=== PATIENT | male | born 1960 | race Caucasian/White ===

== ENCOUNTER 2017-07-17 11:52 | Emergency (ER) | payer SELFPAY ==
[2017-07-17] MEDS ORDERED: Tetan/Diph/Pertus SYR(Tdap)* 0.5 ML SYR(BOOSTRIX) use SYR IM ONE (15:12)
[2017-07-17 15:27] VITALS: BP 122/86
--- NOTE | 2017-07-17 16:45 | ED ---
Laceration/Wound HPI - HPI Summary HPI Summary: Patient presents to the ED with a laceration between the thumb and first finger involving the thenar eminence of the left hand which he sustained 6 days ago. He states the area is not healing well and he is noticing some bruising and redness around the laceration. The laceration is approximately 7 cm in length and almost 0.3 cm in depth and 0.5 cm in width. 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 He has been using duct tape for almost a week and states it has been working well. He denies any fever, sweats, chills or other signs indicating systemic infection. Denies any range of motion issues. Denies numbness, tingling, temperature changes. He denies blood thinners and has been otherwise healthy. - History of Current Complaint Stated Complaint: LT HAND LAC Time Seen by Provider: 07/17/17 12:25 Hx Obtained From: Patient Mechanism of Injury: Sharp/Blunt Trauma Onset/Duration: Sudden Onset Aggravating: Movement Alleviating: Compression Timing: Constant Onset Severity: Moderate Current Severity: Moderate Pain Intensity: 0 Pain Scale Used: 0-10 Numeric Related Hx: Dominant Hand (Left) - Allergy/Home Medications Allergies/Adverse Reactions: Allergies Allergy/AdvReac Type Severity Reaction Status Date / Time No Known Allergies Allergy Verified 07/17/17 12:43 PMH/Surg Hx/FS Hx/Imm Hx Previously Healthy: Yes Endocrine/Hematology History: Denies: Hx Diabetes, Hx Thyroid Disease, Hx Anemia Cardiovascular History: Denies: Hx Congestive Heart Failure, Hx Hypertension, Hx Pacemaker/ICD GI History: Reports: Other GI Disorders - bloody emesis, broken vessels since March, History: Reports: Other Problems/Disorders - frequent urination Denies: Hx Dialysis, Hx Renal Disease Musculoskeletal History: Reports: Hx Arthritis, Hx Back Problems, Other Musculoskeletal History - fx ribs, ankles Sensory History: Reports: Hx Contacts or Glasses Denies: Hx Hearing Aid Opthamlomology History: Reports: Hx Contacts or Glasses Neurological History: Reports: Hx Headaches - recent weeks Denies: Hx Migraine, Hx Seizures Psychiatric History: Reports: Hx Substance Abuse - EtOH, marijuana, cocaine Denies: Hx Anxiety, Hx Panic Disorder, Hx Suicide Attempt, Hx of Violent Episodes Against Others - Cancer History Cancer Type, Location and Year: skin cancer 2 lesions-1 on chest and one on face removed Hx Chemotherapy: No Hx Radiation Therapy: No Hx Palliative Cancer Treatment: No - Surgical History Surgery Procedure, Year, and Place: AGE 5 DOUBLE EAR LOBE REPAIRED - Immunization History Date of Tetanus Vaccine: <10 yrs Hx Pertussis Vaccination: No Immunizations Up to Date: Unable to Obtain/Confirm Infectious Disease History: No Infectious Disease History: Denies: Traveled Outside the [place] in Last 30 Days - Social History Occupation: Employed Full-time Lives: With Family Alcohol Use: Daily Alcohol Amount: 24 beers daily Hx Substance Use: No Substance Use Type: Reports: None Hx Tobacco Use: Yes Smoking Status (MU): Former Smoker Type: Cigarettes Amount Used/How Often: 1/2 pack a day Length of Time of Smoking/Using Tobacco: 39 years Have You Smoked in the Last Year: Yes Review of Systems Negative: Fever, Chills, Fatigue, Skin Diaphoresis Eyes: Negative ENT: Negative Respiratory: Negative Positive: no symptoms reported, see HPI Negative: Arthralgia, Myalgia Positive: Other - 7 cm laceration to the left thumb Neurological: Negative All Other Systems Reviewed And Are Negative: Yes Physical Exam Triage Information Reviewed: Yes Vital Signs On Initial Exam: Initial Vitals Temp Pulse Resp BP Pulse Ox 97.6 F 81 20 148/108 97 07/17/17 12:18 07/17/17 12:18 07/17/17 12:18 07/17/17 12:18 07/17/17 12:18 Vital Signs Reviewed: Yes Appearance: Positive: Well-Appearing, Well-Nourished Skin: Positive: Skin Color Reflects Adequate Perfusion, Other - 7 cm laceration to the left thumb Head/Face: Positive: Temporal Artery Tenderness Eyes: Positive: EOMI, ADAM, Conjunctiva Clear Neck: Positive: Supple, No Lymphadenopathy Respiratory/Lung Sounds: Positive: Clear to Auscultation, Breath Sounds Present Cardiovascular: Positive: Normal, RRR, Pulses are Symmetrical in both Upper and Lower Extremities Musculoskeletal: Positive: Strength/ROM Intact Neurological: Positive: Speech Normal Psychiatric: Positive: Normal, Affect/Mood Appropriate Procedures - Laceration/Wound Repair 1 Location: upper extremity Description: Linear Anesthesia: Local Betadine Prep?: No Irrigated w/ Saline (ccs): 20 Laceration/Wound Explored: clean Closure: Single Layer Debridement: minimal Suture Type: Prolene Number of Sutures: 4 Layer Closure?: No Sterile Dressing Applied?: Yes Diagnostics - Vital Signs Vital Signs Temp Pulse Resp BP Pulse Ox 07/17/17 15:26 97.8 F 83 16 122/86 96 07/17/17 12:18 97.6 F 81 20 148/108 97 - Laboratory Lab Statement: Any lab studies that have been ordered have been reviewed, and results considered in the medical decision making process. Laceration Repair Course/Dx - Course Course Of Treatment: Patient evaluated for laceration to the left thumb involving the thenar eminence. There is a 7 cm length, 0.3 cm with laceration which is not healing properly. Depth is 0.2 cm and upon abduction of the thumb , reopened the wound and begins to bleed again. While recommendations states 36 hours is maximum for suture closure, discussed treatment options with patient and I have suggested 3 loose closures and the deepest part of the wound due to reopening. This will allow the wound to continue to drain any infection which is present. Cleanse wound using saline and chlorhexidine. Irrigated wound with 20 cc normal saline. Used lidocaine without epi as local anesthetic. 2 mL. 3-0 nonabsorbable Prolene. 4 sutures placed using simple interrupted technique. Loose closure placed. Return precautions given. Penicillin 500 mg 4 times daily 7 days for prophylactic antibiotic. Tetanus updated this date. He will return in 7 days for a wound recheck and suture removal. Antibiotic ointment applied and gauze wrapped. - Clinical Impression Provider Diagnoses: Laceration Discharge - Discharge Plan Condition: Stable Disposition: HOME Prescriptions: Penicillin VK 500 MG TAB(NF) [Penicillin VK 500 mg Tab(NF)] 500 mg PO QID #28 tab MDD 4 Patient Education Materials: Laceration (ED) Referrals: Hugh Jones MD [Primary Care Provider] - Additional Instructions: Suture removal in 7 days I have given you prophylactic antibiotics 7 days to prevent infection Keep covered if you are in a dirty area or working Leave open to air otherwise Images - Images Hands: 1 - 7 cm laceration
== END 2017-07-17 15:25 | disposition home or self-care (01) ==
LOC: ED 11:52
DX: S61.012A Laceration without foreign body of left thumb without damage to nail, initial encounter (principal); W45.8XXA Other foreign body or object entering through skin, initial encounter; Y92.9 Unspecified place or not applicable; Z87.891 Personal history of nicotine dependence; Z23 Encounter for immunization
CPT/HCPCS: 12002; 90471; 90715; 99282

== ENCOUNTER 2018-12-04 15:08 | Emergency (ER) | payer SELFPAY ==
[2018-12-04] MEDS ORDERED: Folic Acid TAB* 1 MG PO ONE (15:31)
[2018-12-04] MEDS ORDERED: Thiamine TAB* 100 MG TAB PO ONE (15:31)
[2018-12-04] MEDS ORDERED: Ammonia Inhalant* 1 EA AMP ONE (15:57)
[2018-12-04 16:00] LABS: Urine Appearance Clear; Urine Bacteria Absent (Absent); Urine Bilirubin Negative (Negative); Urine Blood 2+ (Negative); Urine Color Colorless; Urine Glucose Negative (Negative); Urine Ketones Negative (Negative); Urine Nitrite Negative (Negative); Urine Protein Negative (Negative); Urine Red Blood Cell Trace(0-2/hpf) (Absent); Urine Specific Gravity 1.001 (1.010-1.030); Urine Urobilinogen Negative (Negative); Urine White Blood Cell Trace(0-5/hpf) (Absent)
[2018-12-04] MEDS ORDERED: Ammonia Inhalant* 1 EA AMP INH ONE (16:01)
[2018-12-04 16:11] LABS: Urine Benzodiazepine Screen None Detected (None Detect); Urine Opiates Screen None Detected (None Detect)
--- NOTE | 2018-12-04 16:16 | ED ---
Bite Injury/Animal - HPI Summary HPI Summary: This patient is a 58 year old M presenting to [facility] with a chief complaint of extreme fatigue for the past few weeks with worsening in the past few days. In triage, pt reported having a tick bite on his left thigh a few weeks ago. RN reports that pt is usually energetic, has been sleeping for 5-6 hours, and pt has high blood pressure. Pt reports having a hard time formulating words. He is a heavy drinker, the last time he drank was lunch 12/04/18, and reports drinking 6 beers a day. Pt is also a former smoker. Pt has had surgeries for benign mass removal. - History of Current Complaint Chief Complaint: EDWeakness Stated Complaint: FEELS OFF PER EMS Time Seen by Provider: 12/04/18 15:17 Hx Obtained From: Patient Onset of Injury: Happened days ago, Happened weeks ago Type of Bite: Animal - tick Hx of Bite: Unprovoked Has Animal Been Immunized?: No Severity Initially: Mild Severity Currently: Mild Pain Intensity: 0 Pain Scale Used: 0-10 Numeric Aggravating Factor(s): Nothing Alleviating Factor(s): Nothing Animal Available for Observation: No Animal Control Notified: No - Allergies/Home Medications Allergies/Adverse Reactions: Allergies Allergy/AdvReac Type Severity Reaction Status Date / Time No Known Allergies Allergy Verified 07/17/17 12:43 Home Medications: Home Medications NK [No Home Medications Reported] 12/04/18 [History Confirmed 12/04/18] PMH/Surg Hx/FS Hx/Imm Hx Endocrine/Hematology History: Denies: Hx Diabetes, Hx Thyroid Disease, Hx Anemia Cardiovascular History: Denies: Hx Congestive Heart Failure, Hx Hypertension, Hx Pacemaker/ICD GI History: Reports: Other GI Disorders - bloody emesis, broken vessels since March, History: Reports: Other Problems/Disorders - frequent urination Denies: Hx Dialysis, Hx Renal Disease Musculoskeletal History: Reports: Hx Arthritis, Hx Back Problems, Other Musculoskeletal History - fx ribs, ankles Sensory History: Reports: Hx Contacts or Glasses Denies: Hx Hearing Aid Opthamlomology History: Reports: Hx Contacts or Glasses Neurological History: Reports: Hx Headaches - recent weeks Denies: Hx Migraine, Hx Seizures Psychiatric History: Reports: Hx Substance Abuse - EtOH, marijuana, cocaine Denies: Hx Anxiety, Hx Panic Disorder, Hx Suicide Attempt, Hx of Violent Episodes Against Others - Cancer History Cancer Type, Location and Year: skin cancer 2 lesions-1 on chest and one on face removed Hx Chemotherapy: No Hx Radiation Therapy: No Hx Palliative Cancer Treatment: No - Surgical History Surgery Procedure, Year, and Place: AGE 5 DOUBLE EAR LOBE REPAIRED - Immunization History Date of Tetanus Vaccine: <10 yrs Infectious Disease History: No Infectious Disease History: Denies: Traveled Outside the [place] in Last 30 Days - Social History Alcohol Use: Daily Alcohol Amount: 6 beers daily Hx Substance Use: No Substance Use Type: Reports: None Substance Use Comment - Amount & Last Used: last used right before admission on 01/18/14 Hx Tobacco Use: No Smoking Status (MU): Former Smoker Type: Cigarettes Amount Used/How Often: 1/2 pack a day Length of Time of Smoking/Using Tobacco: 39 years Have You Smoked in the Last Year: Yes Review of Systems Positive: Fatigue Neurological: Other - Trouble formulating words Psychological: Other - alcohol intoxication All Other Systems Reviewed And Are Negative: Yes Physical Exam - Summary Physical Exam Summary: VITAL SIGNS: Reviewed. GENERAL: Patient is a well-developed and nourished male who is lying comfortable in the stretcher. Patient is not in any acute respiratory distress. HEAD AND FACE: No signs of trauma. No ecchymosis, hematomas or skull depressions. No sinus tenderness. EYES: PERRLA, EOMI x 2, No injected conjunctiva, no nystagmus. EARS: Hearing grossly intact. Ear canals and tympanic membranes are within normal limits. MOUTH: Oropharynx within normal limits. Alcoholic Breath. NECK: Supple, trachea is midline, no adenopathy, no JVD, no carotid bruit, no c- spine tenderness, neck with full ROM. CHEST: Symmetric, no tenderness at palpation LUNGS: Clear to auscultation bilaterally. No wheezing or crackles. CVS: Regular rate and rhythm, S1 and S2 present, no murmurs or gallops appreciated. ABDOMEN: Soft, non-tender. No signs of distention. No rebound no guarding, and no masses palpated. Bowel sounds are normal. EXTREMITIES: FROM in all major joints, no edema, no cyanosis or clubbing. NEURO: Alert and oriented x 3. No acute neurological deficits. Speech is normal and follows commands. SKIN: Dry and warm. Triage Information Reviewed: Yes Vital Signs On Initial Exam: Initial Vitals Temp Pulse Resp BP Pulse Ox 99.1 F 89 18 179/120 96 12/04/18 15:10 12/04/18 15:10 12/04/18 15:10 12/04/18 15:10 12/04/18 15:10 Vital Signs Reviewed: Yes Diagnostics - Vital Signs Vital Signs Temp Pulse Resp BP Pulse Ox 12/04/18 15:16 89 15 95 12/04/18 15:13 84 15 179/120 95 12/04/18 15:10 99.1 F 89 18 179/120 96 - Laboratory Lab Results: Lab Results 12/04/18 Range/Units 15:32 Urine Color Colorless Urine Appearance Clear Urine pH 7.0 (5-9) Ur Specific [place] 1.001 L (1.010-1.030) Urine Protein Negative (Negative) Urine Ketones Negative (Negative) Urine Blood 2+ A (Negative) Urine Nitrate Negative (Negative) Urine Bilirubin Negative (Negative) Urine Urobilinogen Negative (Negative) Ur Leukocyte Esterase Negative (Negative) Urine WBC (Auto) Trace(0-5/hpf) (Absent) Urine RBC (Auto) Trace(0-2/hpf) (Absent) Urine Bacteria Absent (Absent) Urine Glucose Negative (Negative) Result Diagrams: 12/04/18 16:00 12/04/18 16:01 Lab Statement: Any lab studies that have been ordered have been reviewed, and results considered in the medical decision making process. Re-Evaluation - Re-Evaluation First Eval Re-Evaluation Time: 15:38 Comment: The patient was found to be difficult to wake up but vital signs are stable. This is likely due to current state of alcohol intoxication. Bite Injury Course/Dx - Course Assessment/Plan: This patient is a 58 year old M presenting to [facility] with a chief complaint of extreme fatigue for the past few weeks with worsening in the past few days. In triage, pt reported having a tick bite on his left thigh a few weeks ago. RN reports that pt is usually energetic, has been sleeping for 5- 6 hours, and pt has high blood pressure. Pt reports having a hard time formulating words. He is a heavy drinker, the last time he drank was lunch , and reports drinking 6 beers a day. Pt is also a former smoker. Pt has had surgeries for benign mass removal. Blood work without a significant abnormality except for glucose of 106, AST is 97, AST is 84, alkaline phosphatase is 143. Urinalysis is negative for UTI, urine toxicology is negative. Serum alcohol level is 412. In the ED course the patient was given IV fluids, he was given folic acid and thiamine since the patient is an alcoholic. At this point the patient is resting comfortably. The patient is hemodynamically stable. Patient will be signed out at shift change to Dr. Hyatt. He will reassess for further disposition when the patient is sober. - Diagnoses Provider Diagnosis: Alcohol intoxication Discharge - Sign-Out/Discharge Documenting (check all that apply): Sign-Out Patient Signing out patient TO: Max Hyatt - Patient is a sign-out to Dr. Hyatt at shift change pending EtOH intoxication improvement. Patient Received Moderate/Deep Sedation with Procedure: No - Discharge Plan Referrals: Hugh Jones MD [Primary Care Provider] - - Attestation Statements Document Initiated by Gem: Yes Documenting Scribe: Graciela Hall Provider For Whom Gem is Documenting (Include Credential): Dr. Glenn Castro MD Scribe Attestation: Graciela Lund scribed for Dr. Glenn Castro MD on 12/04/18 at 1909. Scribe Documentation Reviewed: Yes Provider Attestation: The documentation as recorded by the Graciela moore accurately reflects the service I personally performed and the decisions made by me, Dr. Glenn Castro MD Status of Scribe Document: Ready
[2018-12-04 16:27] LABS: ABS Eosinophils 0.1 10^3/ul (0-0.6); ABS Lymphocytes 1.9 10^3/ul (1.0-4.8); ABS Monocytes 0.5 10^3/ul (0-0.8); ABS Neutrophils 2.2 10^3/ul (1.5-7.7); Eosinophil % 1.1 %; Hematocrit 43 % (42-52); Hemoglobin 15.3 g/dL (14.0-18.0); Lymphocyte % 40.1 %; Mean Corpuscular HGB Conc 36 g/dL (31-36); Mean Corpuscular Hemoglobin 35 pg (27-31); Mean Corpuscular Volume 97 fL (80-94); Mean Platelet Volume 7.3 fL (7.4-10.4); Nucleated Red Blood Cells % 0.1; Platelet Count 89 10^3/uL (150-450); Red Cell Distribution Width 14 % (10-15); White Blood Count 4.7 10^3/uL (3.5-10.8)
[2018-12-04 16:42] LABS: ALT 84 U/L (7-52); AST 97 U/L (13-39); Albumin 3.9 g/dL (3.2-5.2); Albumin/Globulin Ratio 1.3 (1-3); Alkaline Phosphatase 143 U/L (34-104); Anion Gap 9 mmol/L (2-11); BUN/Creatinine Ratio 9.8 (8-20); Blood Urea Nitrogen 8 mg/dL (6-24); CO2 Carbon Dioxide 25 mmol/L (22-32); Calcium 8.7 mg/dL (8.6-10.3); Chloride 109 mmol/L (101-111); EGFR African American 116.8 (>60); EGFR Non-African American 96.5 (>60); Globulin 2.9 g/dL (2-4); Glucose 106 mg/dL (70-100); Potassium 3.8 mmol/L (3.5-5.0); Sodium 143 mmol/L (135-145); Total Protein 6.8 g/dL (6.4-8.9)
[2018-12-04 16:53] LABS: TSH (Thyroid Stimulating Horm) 0.59 mcIU/mL (0.34-5.60)
[2018-12-04 16:54] LABS: Acetaminophen < 15 mcg/mL; Salicylate < 2.50 mg/dL (<30)
[2018-12-04 17:00] LABS: Alcohol 412 mg/dL (<10)
--- NOTE | 2018-12-04 19:35 | ED ---
Progress - Progress Note Progress Note: Patient is received as a sign-out from Dr. Castro to Dr. Hyatt at 1900 12/04/18 shift change pending sobriety of this patient. Re-Evaluation - Re-Evaluation First Eval Re-Evaluation Time: 15:38 Comment: The patient was found to be difficult to wake up but vital signs are stable. This is likely due to current state of alcohol intoxication. Course/Dx - Course Course Of Treatment: Patient is received as a sign-out from Dr. Castro to Dr. Hyatt at 1900 12/04/18 shift change pending sobriety of this patient. As of 625 , the pt is stable, walking around the ED, and safe for discharge. He is agreeable with this plan. - Diagnoses Provider Diagnoses: Alcohol intoxication Discharge - Sign-Out/Discharge Documenting (check all that apply): Patient Departure Patient Received Moderate/Deep Sedation with Procedure: No - Discharge Plan Condition: Good Disposition: HOME Patient Education Materials: Alcohol Intoxication (ED), Abuse of Alcohol (ED) Referrals: [facility] [Outside] Hugh Jones MD [Primary Care Provider] - - Billing Disposition and Condition Condition: GOOD Disposition: Home - Attestation Statements Document Initiated by Scribe: Yes Documenting Scribe: Isabel Hendrickson Provider For Whom Gem is Documenting (Include Credential): Max Hyatt MD. Scribe Attestation: Isabel Lund, krystaed for Max Hyatt MD. on 12/08/18 at 0812. Scribe Documentation Reviewed: Yes Provider Attestation: The documentation as recorded by the Isabel moore accurately reflects the service I personally performed and the decisions made by me, Max Hyatt MD. Status of Scribe Document: Viewed
[2018-12-04] MEDS ORDERED: chlordiazePOXIDE CAP* 25 MG PO ONE (23:38)
[2018-12-05 06:33] VITALS: BP 175/129
== END 2018-12-05 06:33 | disposition home or self-care (01) ==
LOC: ED 15:08
DX: F10.129 Alcohol abuse with intoxication, unspecified (principal); Y90.8 Blood alcohol level of 240 mg/100 ml or more; Z87.891 Personal history of nicotine dependence
CPT/HCPCS: 36415; 80053; 80307; 80320; 80329; 81003; 81015; 84443; 85025; 85060; 87086; 99283; A9270-GY; G0480

== ENCOUNTER 2019-02-28 08:55 | Emergency (ER) | payer SELFPAY ==
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
[2019-02-28 10:33] VITALS: BP 142/68
== END 2019-02-28 10:00 | disposition home or self-care (01) ==
LOC: ED 08:55
DX: Z04.1 Encounter for examination and observation following transport accident (principal); V49.9XXA Car occupant (driver) (passenger) injured in unspecified traffic accident, initial encounter; Y92.410 Unspecified street and highway as the place of occurrence of the external cause; Z87.891 Personal history of nicotine dependence
CPT/HCPCS: 99282

== ENCOUNTER 2019-04-20 15:36 | Emergency (ER) | payer SELFPAY ==
[2019-04-20] MEDS ORDERED: Lidocaine/Epineph/Tetraca GEL* 3 ML GEL IN SYR TOPICAL ONE (15:45)
--- NOTE | 2019-04-20 15:49 | ED ---
Head Injury - HPI Summary HPI Summary: Pt is a 59 y/o M presenting to the ED brought in by EMS for a head injury. Pt was drinking this morning (4 beers, 2 jagers), and running across the street to avoid traffic when he fell and hit his head on the sidewalk. Pt denies LOC or pain. Medications reviewed. Allergies noted. - History Of Current Complaint Chief Complaint: EDFall Stated Complaint: FALL PER EMS Hx Obtained From: Patient, EMS Mechanism Of Injury: Fall From A Standing Position Onset/Duration: Started Hours Ago, Still Present Onset of Pain: Immediate Severity Currently: None Severity Initially: Mild Pain Intensity: 0 Pain Scale Used: 0-10 Numeric Location of Head Injury: Frontal Associated Signs And Symptoms: Negative - Allergies/Home Medications Allergies/Adverse Reactions: Allergies Allergy/AdvReac Type Severity Reaction Status Date / Time No Known Allergies Allergy Verified 02/28/19 09:00 Home Medications: Home Medications Hydrochlorothiazide TAB* [Hydrodiuril TAB*] 50 mg PO DAILY 04/20/19 [History Confirmed 04/20/19] PMH/Surg Hx/FS Hx/Imm Hx Previously Healthy: Yes Endocrine/Hematology History: Denies: Hx Diabetes, Hx Thyroid Disease, Hx Anemia Cardiovascular History: Denies: Hx Congestive Heart Failure, Hx Hypertension, Hx Pacemaker/ICD GI History: Reports: Other GI Disorders - bloody emesis, broken vessels since March, History: Reports: Other Problems/Disorders - frequent urination Denies: Hx Dialysis, Hx Renal Disease Musculoskeletal History: Reports: Hx Arthritis, Hx Back Problems, Other Musculoskeletal History - fx ribs, ankles Sensory History: Reports: Hx Contacts or Glasses Denies: Hx Hearing Aid Opthamlomology History: Reports: Hx Contacts or Glasses Neurological History: Reports: Hx Headaches - recent weeks Denies: Hx Migraine, Hx Seizures Psychiatric History: Reports: Hx Substance Abuse - EtOH, marijuana, cocaine Denies: Hx Anxiety, Hx Panic Disorder, Hx Suicide Attempt, Hx of Violent Episodes Against Others - Cancer History Cancer Type, Location and Year: skin cancer 2 lesions-1 on chest and one on face removed Hx Chemotherapy: No Hx Radiation Therapy: No Hx Palliative Cancer Treatment: No - Surgical History Surgery Procedure, Year, and Place: AGE 5 DOUBLE EAR LOBE REPAIRED - Immunization History Date of Tetanus Vaccine: <10 yrs Infectious Disease History: No Infectious Disease History: Denies: Traveled Outside the [place] in Last 30 Days - Family History Known Family History: Positive: Cardiac Disease - paternal and uncle - Social History Alcohol Use: Daily Alcohol Amount: 6 beers daily Hx Substance Use: No Substance Use Type: Reports: None Substance Use Comment - Amount & Last Used: last used right before admission on 01/18/14 Hx Tobacco Use: No Smoking Status (MU): Former Smoker Type: Cigarettes Amount Used/How Often: 1/2 pack a day Length of Time of Smoking/Using Tobacco: 39 years Have You Smoked in the Last Year: Yes Review of Systems Negative: Myalgia Positive: Other - bleeding on R eyebrow Negative: Syncope All Other Systems Reviewed And Are Negative: Yes Physical Exam - Summary Physical Exam Summary: Constitutional: Well-developed, Well-nourished, Alert. (-) Distressed. Pt smells of alcohol. Skin: Warm, Dry HENT: Normocephalic. Stellate laceration to the R forehead just lateral to the eyebrow. Eyes: Conjunctiva normal Neck: Musculoskeletal ROM normal neck. (-) JVD, (-) Stridor, (-) Tracheal deviation Cardio: Rhythm regular, rate normal, Heart sounds normal; Intact distal pulses; Radial pulses are 2+ and symmetric. (-) Murmur Pulmonary/Chest wall: Effort normal. (-) Respiratory distress, (-) Wheezes, (-) Rales Abd: Soft, (-) tenderness, (-) Distension, (-) Guarding, (-) Rebound Musculoskeletal: (-) Edema Lymph: (-) Cervical adenopathy Neuro: Alert, Oriented x3 Psych: Mood and affect Normal Triage Information Reviewed: Yes Vital Signs On Initial Exam: Initial Vitals Temp Pulse Resp BP Pulse Ox 99 F 90 20 142/101 96 04/20/19 15:40 04/20/19 15:40 04/20/19 15:40 04/20/19 15:40 04/20/19 15:40 Vital Signs Reviewed: Yes Procedures - Sedation Patient Received Moderate/Deep Sedation with Procedure: No Diagnostics - Vital Signs Vital Signs Temp Pulse Resp BP Pulse Ox 04/20/19 15:40 99 F 90 20 142/101 96 - Laboratory Lab Statement: Any lab studies that have been ordered have been reviewed, and results considered in the medical decision making process. Re-Evaluation - Re-Evaluation 1st re-eval Re-Evaluation Time: 16:05 Change: Unchanged Comment: Pt walked out to the waiting room and expressed that he does not want to stay. He was found to have mental capacity on my exam, and I informed him that a main risk of going home is that he could frmo a brain bleed. He accepts that risk and still does not want to stay. Head Injury Course/Dx Course Of Treatment: Patient is here after a mechanical fall while being intoxicated. Patient was alert and oriented 3 upon arrival. Patient had a laceration that was repairable. Given patient's alcohol intoxication and fall, CT head was ordered. While I was talking to another patient, patient eloped from the department. Patient was found in the waiting room and encouraged multiple times come back for evaluation but declined. Patient was aware that he could from a head bleed if he goes home. Patient accepted this risk. Patient was encouraged to return if he changed his mind. - Diagnoses Provider Diagnoses: Alcohol intoxication, Head trauma Discharge ED - Sign-Out/Discharge Documenting (check all that apply): Patient Departure - Discharge Plan Condition: Stable Disposition: ELOPEMENT Referrals: Hugh Jones MD [Primary Care Provider] - - Billing Disposition and Condition Condition: STABLE Disposition: Elopement - Attestation Statements Document Initiated by Gem: Yes Documenting Scribe: Isabel Hendrickson Provider For Whom Gem is Documenting (Include Credential): Dustin Naidu MD. Scribe Attestation: Isabel Lund, scribed for Dustin Naidu MD. on 04/20/19 at 1651. Scribe Documentation Reviewed: Yes Provider Attestation: The documentation as recorded by the scribe, Isabel Hendrickson accurately reflects the service I personally performed and the decisions made by me, Dustin Naidu MD. Status of Scribe Document: Viewed
[2019-04-20 16:15] VITALS: BP 0/0
== END 2019-04-20 16:13 | disposition home or self-care (01) ==
LOC: ED 15:36
DX: S09.90XA Unspecified injury of head, initial encounter (principal); F10.129 Alcohol abuse with intoxication, unspecified; R51 Headache; Z85.828 Personal history of other malignant neoplasm of skin; Z87.891 Personal history of nicotine dependence; Z79.899 Other long term (current) drug therapy; W19.XXXA Unspecified fall, initial encounter; Y92.9 Unspecified place or not applicable
CPT/HCPCS: 99282

== ENCOUNTER 2019-06-01 09:38 | Emergency (ER) | payer SELFPAY ==
--- NOTE | 2019-06-01 11:55 | ED ---
Lower Extremity - HPI Summary HPI Summary: Pt is a 59 y/o M presenting to the ED with a chief complaint of L ankle pain. He states he was walking to get his mail yesterday when his L foot went into a hole and it rolled inwards. He has been walking on it since. He reports edema, ecchymosis, myalgia, and arthralgia. No open wounds He denies knee pain specifically. He has been taking Tylenol at home. When fell, landed on knee. No pain to knee. no other injuries - no strike head, loc, neck or back pain Pt's medications reviewed this visit - History of Current Complaint Chief Complaint: EDExtremityLower Stated Complaint: LEFT ANKLE INJURY PER PT Time Seen by Provider: 06/01/19 11:25 Hx Obtained From: Patient Mechanism Of Injury: Twisted Onset of Pain: Immediate Onset/Duration: Hours Severity Initially: Moderate Severity Currently: Severe Pain Intensity: 8 Pain Scale Used: 0-10 Numeric Timing: Constant, Lasting Hours Location: Is Discrete @ - L ankle Associated Signs And Symptoms: Positive: Swelling, Bruising. Negative: Knee Pain Aggravating Factor(s): Ambulation Alleviating Factor(s): Nothing Able to Bear Weight: Yes - Allergies/Home Medications Allergies/Adverse Reactions: Allergies Allergy/AdvReac Type Severity Reaction Status Date / Time No Known Allergies Allergy Verified 06/01/19 10:19 PMH/Surg Hx/FS Hx/Imm Hx Previously Healthy: Yes Endocrine/Hematology History: Denies: Hx Diabetes, Hx Thyroid Disease, Hx Anemia Cardiovascular History: Reports: Hx Hypertension Denies: Hx Congestive Heart Failure, Hx Pacemaker/ICD GI History: Reports: Other GI Disorders - bloody emesis, broken vessels since March, History: Reports: Other Problems/Disorders - frequent urination Denies: Hx Dialysis, Hx Renal Disease Musculoskeletal History: Reports: Hx Arthritis, Hx Back Problems, Other Musculoskeletal History - fx ribs, ankles Sensory History: Reports: Hx Contacts or Glasses Denies: Hx Hearing Aid Opthamlomology History: Reports: Hx Contacts or Glasses Neurological History: Reports: Hx Headaches - recent weeks Denies: Hx Migraine, Hx Seizures Psychiatric History: Reports: Hx Substance Abuse - EtOH, marijuana, cocaine Denies: Hx Anxiety, Hx Panic Disorder, Hx Suicide Attempt, Hx of Violent Episodes Against Others - Cancer History Cancer Type, Location and Year: skin cancer 2 lesions-1 on chest and one on face removed Hx Chemotherapy: No Hx Radiation Therapy: No Hx Palliative Cancer Treatment: No - Surgical History Surgery Procedure, Year, and Place: AGE 5 DOUBLE EAR LOBE REPAIRED - Immunization History Date of Tetanus Vaccine: <10 yrs Date of Influenza Vaccine: 03/2019 Infectious Disease History: No Infectious Disease History: Denies: Traveled Outside the [place] in Last 30 Days - Family History Known Family History: Positive: Cardiac Disease - paternal and uncle - Social History Occupation: Employed Full-time Alcohol Use: Rare Hx Substance Use: No Substance Use Type: Reports: None Substance Use Comment - Amount & Last Used: last used right before admission on 01/18/14 Hx Tobacco Use: No Smoking Status (MU): Former Smoker Type: Cigarettes Amount Used/How Often: 1/2 pack a day Length of Time of Smoking/Using Tobacco: 39 years Have You Smoked in the Last Year: Yes Review of Systems Positive: Arthralgia, Myalgia, Edema. Negative: Other - knee pain Positive: Bruising All Other Systems Reviewed And Are Negative: Yes Physical Exam - Summary Physical Exam Summary: Vital Signs Reviewed: Yes A+Ox3, no distress Eyes: Conjunctiva Clear ENT: Hearing grossly normal neck: supple Respiratory: Positive: No respiratory distress, No accessory muscle use Cardiovascular: 1+ DP, PT + edema dorsum foot Musculoskeletal Exam: + SLE + flex/ext left knee + flex.ext ankle with pain lateral aspect of ankle + TTP lateral malleolus with palp no crepitus Neurological: Positive: Alert, ambulatory without difficulty Psychological: Positive: Normal Response To examiner Skin: Positive: no rash, + ecchymosis circumferential left ankle with extension to dorsum over cuboids small abraison medial aspect pt with basal cell ca on nose - states scheduled to have removed Triage Information Reviewed: Yes Vital Signs On Initial Exam: Initial Vitals Temp Pulse Resp BP Pulse Ox 99.2 F 95 16 165/124 97 06/01/19 10:16 06/01/19 10:16 06/01/19 10:16 06/01/19 10:16 06/01/19 10:16 Vital Signs Reviewed: Yes Procedures - Sedation Patient Received Moderate/Deep Sedation with Procedure: No - Splinting Left Lower Extremity Location: L ankle Hand-Made Type: orthoglass Splint: posterior walking - and sugar-tong Pre-Proc Neuro Vasc Exam: normal Post-Proc Neuro Vasc Exam: normal Splint Applied by Provider: Stephani Ratliff - Vital Signs Vital Signs Temp Pulse Resp BP Pulse Ox 06/01/19 10:16 99.2 F 95 16 165/124 97 - Laboratory Lab Statement: Any lab studies that have been ordered have been reviewed, and results considered in the medical decision making process. - Radiology Foot XR Radiology Interpretation Completed By: Radiologist Summary of Radiographic Findings: 1. Bright type B fracture at the distal metaphysis of the fibula mild lateral displacement and associated mild widening of the ankle mortise medially. 2. Suggestion of previous deltoid ligament injury with chronic ossification. 3. Talocrural joint osteoarthritis. ED physician has reviewed this report. Ankle XR Radiology Interpretation Completed By: Radiologist Summary of Radiographic Findings: 1. Bright type B fracture at the distal metaphysis of the fibula mild lateral displacement and associated mild widening of the ankle mortise medially. 2. Suggestion of previous deltoid ligament injury with chronic ossification. 3. Talocrural joint osteoarthritis. ED physician has reviewed this report. Re-Evaluation - Re-Evaluation 1st re-eval Re-Evaluation Time: 11:55 Change: Unchanged Comment: I brought the X-Rays in with me to show the patient the fracture in his bone and explained to him that I will be contacting orthopedics as the fracture goes slightly into his ankle joint. He understands and agrees. Second Eval Comment: spoke with Dr. Vigil - recommend complete NWB, posterior/sugertong wants to see in office today or Thur. will need surgery. I reviewed with pt - he came by bus - will assist in transport to office from ED Lower Extremity Course/Dx - Course Course Of Treatment: Patient presents to urgent care for evaluation of his left ankle patient stepped in a hole and inverted it yesterday. Patient walking since. Patient with progressive ecchymosis and edema. Patient without any paresthesias. Patient has taken Tylenol with relief. Patient without any other complaints. On exam patient does have edema and ecchymosis superficial on the ankle but tenderness the lateral aspect. Patient does have good range of motion and distal CSM intact. We'll image and follow-up. Patient comfortable and plan. Patient declined any analgesia at this time. Pt's BP markedly elevated - has a history of similar and very distressed regarding ankle - recommend fu wtih pcp no cp, sob, darnell or current sx of end organ - will recheck prior to discharge - Diagnoses Provider Diagnoses: Displaced oblique fracture of shaft of left fibula Discharge ED - Sign-Out/Discharge Documenting (check all that apply): Patient Departure - Discharge Plan Condition: Stable Disposition: HOME Patient Education Materials: Ankle Fracture (ED) Forms: *Work Release Referrals: Saud Vigil MD [Medical Doctor] - (Today - immediately after discharge from the emergency department) Hugh Jones MD [Primary Care Provider] - Additional Instructions: - Use crutches and do not put weight on your ankle until you cleared by the orthopedic provider - elevate your ankle to help with swelling and pain - Okay to alternate ibuprofen (Advil, Motrin) and Tylenol (acetaminophen) every 3 hours for pain or fever. Take with food. Do NOT take for more than 4-5 days. - Go directly to Dr. Vigil's office today - he is expecting you - Billing Disposition and Condition Condition: STABLE Disposition: Home - Attestation Statements Document Initiated by Scribe: Yes Documenting Scribe: Isabel Hendrickson Provider For Whom Gem is Documenting (Include Credential): Stephani Ratliff MD. Scribe Attestation: IIsabel, scribed for Stephani Ratliff MD. on 06/01/19 at 1423. Status of Scribe Document: Viewed Consult Consult: [id number] - I spoke with Dr. Vigil of orthopedics about the pt's present condition who states that the pt needs to be splinted, posterior and sugar tong, and needs to follow up in his office either today or , 06/03/19. He needs to be completely non-weight bearing, and he will need surgery to fix the fracture.
[2019-06-01 12:58] VITALS: BP 177/108
== END 2019-06-01 12:57 | disposition home or self-care (01) ==
LOC: ED 09:38
DX: S82.432A Displaced oblique fracture of shaft of left fibula, initial encounter for closed fracture (principal); M25.572 Pain in left ankle and joints of left foot; R60.9 Edema, unspecified; I10 Essential (primary) hypertension; Z87.891 Personal history of nicotine dependence; Z85.828 Personal history of other malignant neoplasm of skin; X50.9XXA Other and unspecified overexertion or strenuous movements or postures, initial encounter; Y92.9 Unspecified place or not applicable; Z79.899 Other long term (current) drug therapy
CPT/HCPCS: 99282

== ENCOUNTER 2019-06-04 15:17 | Day surgery (SDC) | payer SELFPAY ==
[~2019-06-04 15:17] MED LIST: Buffered Lidocaine 1% SYRIN* 1 ML/SYRINGE INTRADERM ONE; Dexamethasone TAB* 4 MG PO ONE; DiMENhydriNATE IV* 50 MG/ML VIAL IV PUSH PRN; Famotidine IV* 10 MG/ML 2 ML (20 mg) IV ONE; Lactated Ringers 1000 ML Bag* 1,000 ML IV SCH; Naloxone* 0.4 MG/ML 1 ML VIAL IV PRN; Ondansetron ODT TAB* 4 MG PO ONE; PROCHLORPERAZINE INJ 5 MG/ML 2 ML VIAL IV PRN
[2019-06-04] MEDS ORDERED: Ondansetron ODT TAB* 4 MG ONE (16:20)
[2019-06-04] MEDS ORDERED: Famotidine IV* 10 MG/ML 2 ML (20 mg) ONE (16:21)
[2019-06-04] MEDS ORDERED: Buffered Lidocaine 1% SYRIN* 1 ML/SYRINGE INTRADERM ONE (16:21)
[2019-06-04] MEDS ORDERED: ceFAZolin 2 GM in NS PREMIX(*) 2 GM/100 ML BAG IVPB ONE (16:21)
[2019-06-04] MEDS ORDERED: Dexamethasone TAB* 4 MG ONE (16:21)
[2019-06-04] MEDS ORDERED: fentaNYL* 50 MCG/ML 2 ML VIAL (100 MCG VIAL) ONE ×2 (18:54→22:02)
[2019-06-04] MEDS ORDERED: Midazolam* 1 MG/ML 5 ML VIAL (5 MG) ONE (18:55)
[2019-06-04] MEDS ORDERED: KETAMINE HCL* 50 MG/ML 10 ML VIAL ONE (18:55)
[2019-06-04] MEDS ORDERED: Propofol* 10 MG/ML 20 ML BTL ONE ×2 (19:15→21:28)
[2019-06-04] MEDS ORDERED: Ketorolac INJ* 30 MG/ML 1 ML VIAL ONE ×2 (19:15→21:28)
[2019-06-04] MEDS ORDERED: Lidocaine 2% PF * 5 ML VIAL ONE ×2 (19:15→21:28)
[2019-06-04] MEDS ORDERED: ROPIVACAINE 5 MG/ML 30 ML BTL (0.5%) ONE (21:28)
[2019-06-04] MEDS ORDERED: HYDROmorphone INJ1* 1 MG/ML SYRINGE ONE ×2 (21:31→22:02)
[2019-06-04] MEDS ORDERED: Bupivacaine 0.25% EPI 200,000* 30 ML SDV ONE (21:39)
[2019-06-04] MEDS ORDERED: hydrALAZINE IV* 20 MG/ML VIAL ONE (22:02)
[2019-06-04] MEDS: HYDROmorphone INJ1* 1 MG/ML SYRINGE IV PRN ×4 (22:07→22:25)
[2019-06-04] MEDS: fentaNYL* 50 MCG/ML 2 ML VIAL (100 MCG VIAL) IV PRN ×4 (22:09→22:22)
[2019-06-04] MEDS: oxyCODONE TAB* 5 MG TAB PO PRN ×2 (22:20→22:21)
[2019-06-04] MEDS ORDERED: oxyCODONE TAB* 5 MG TAB ONE (22:20)
[2019-06-04 23:01] VITALS: BP 138/89
--- NOTE | 2019-06-06 02:58 | OP ---
OPERATIVE REPORT: DATE OF OPERATION: 06/04/19 DATE OF : 60 SURGEON: Saud Vigil MD STRUCTURES ASSEMBLER: WES Keith A physician administrative assistant receptionist was required for the length of the procedure for assistance with patient positioning, retraction, and closure. ANESTHESIOLOGIST: Dr. Telly Hanley ANESTHESIA: General anesthesia, local anesthesia with approximately 10 cc of Marcaine 0.25% with epinephrine. PRE-OP DIAGNOSIS: 1. Left ankle fracture, lateral malleolus, displaced. 2. Left ankle possible unstable syndesmosis injury. POST-OP DIAGNOSIS: Left ankle fracture, lateral malleolus, displaced. OPERATIVE PROCEDURE: Open reduction and internal fixation, left ankle fracture , lateral malleolus. ANTIBIOTICS: Ancef 2 g IV. IV FLUIDS: See anesthesia note. SKIN TO SKIN TIME: 56 minutes. TOURNIQUET TIME: 60 minutes at 300 mmHg of left thigh tourniquet. RADIATION EXPOSURE: C-arm used. SPECIMEN: None. IMPLANTS: 3.5 mm cortical fully threaded screw placed in lag technique fashion across the fracture site. One-third tubular Synthes plate placed. 6-hole plate. This was filled with 5 screws, nonlocking and locking, cortical and cancellous. ESTIMATED BLOOD LOSS: Minimal. COMPLICATIONS: None. 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 I saw the patient in clinic on 06/01/19. I noted him to have a displaced lateral malleolus fracture of at least 3 mm of displacement. There appeared to be some widening of the medial clear space and some irregularity of the mortise. The patient was noted to already have some change of that left ankle joint including some joint space narrowing and spurring. In clinic, I spoke to the patient about his injury and his options, nonoperative and operative. Given the extent of fracture site displacement and the irregularity of the mortise, I recommended surgery. Given the patient's more advanced age and his pre-existing arthritic changes, we spoke about the possible effects, lesser or greater, on pain, function, range of motion left ankle. The patient ultimately decided on the surgery. We discussed risks and potential complications of surgery. We placed the patient in a short leg cast and instructed him on extreme left lower extremity elevation until the surgical date. DESCRIPTION OF PROCEDURE: In preoperative holding, the patient signed a written consent. Operative extremity was marked in preop holding. The patient' s cast was bivalved. The looseness of his cast that had been put on just several days earlier indicated greatly decreased soft tissue swelling. The patient did inform me that he had been very good at elevating that left lower extremity. I had had some concerns about patient compliance in the office that this was a nice surprise that I was happy about. The patient was taken to the operating room, placed supine on operating table. Sedated and intubated. Large bump placed under the left hemipelvis. Tourniquet placed about the left thigh. Left lower extremity prepped and draped. Surgical timeout performed. Esmarch applied and tourniquet elevated. Skin incision for the lateral approach to the ankle. I dissected down to bone. I cleaned out the fracture site with a curette and rongeur. Irrigation. Reduced the fracture. I placed a 3.5 mm cortical fully threaded screw from posteroinferior to anterosuperior. I used a lag technique. This held the reduction nicely. I noted a small fragment of comminution anteriorly. There was very minimal displacement of it and it was such a small fragment attached to soft tissue that I decided to leave it in place. I picked a 6-hole plate. I contoured it appropriately. I confirmed with C-arm that I was going to put it in the good position from proximal to distal. I placed 2 nonlocking screws one proximal and one distal to the fracture site. I obtained images that showed good reduction and plate placement. I filled the plate with locking screws. I took final C-arm images, which showed good position of plate and screws and good reduction. I next performed Cotton test. No change in the medial clear space nor any tibia fibular clear space syndesmotic space changes. I did an external rotation stress test. There may have been some obliquity of the tibiotalar space superiorly and maybe an increase of a millimeter medially, but it was not overly impressive medial clear space to less than 6 mm. I therefore decided to hold off on a syndesmotic screw. Irrigation. Closure of deep fascia with [id number] stitches using Vicryl 2.0 suture. Closure of subcutaneous tissue with buried simple stitches using Vicryl 3.0 suture. Closure of the skin with a running stitch using nylon 3.0 suture. Local anesthesia injected proximal to the skin incision. Xeroform, 4x4s , sterile Webril, a plaster with a posterior slab and then a sugar tong medial and lateral sling followed by an David bandage. The patient was awakened, extubated and transferred to the PACU. DISPOSITION: The patient was prescribed Percocet for pain control. He was complaining of some muscle spasms in the PACU and was given a prescription for Flexeril. He was given a short course of antibiotics as prophylaxis. He was told to be nonweightbearing and toe-touch weightbearing left lower extremity. He was told to be especially good about elevating that left ankle above the heart for at least 4 days postoperatively. The patient will follow up with me in 10 to 14 days postoperatively in clinic with x-rays. I have already spoken to the patient about being immobilized between weeks 2 and 6 in either a walking boot or a short leg cast. [id number]/[facility] #: [id number] DAVEY
== END 2019-06-04 23:09 | disposition home or self-care (01) ==
LOC: OR 15:17
PROVIDERS: ATTEND Orthopaedic Surgery
PROC: 0QSK04Z Reposition Left Fibula with Internal Fixation Device, Open Approach (ICD-10-PCS; principal; 2019-06-04 17:15)
DX: S82.62XA Displaced fracture of lateral malleolus of left fibula, initial encounter for closed fracture (principal); I10 Essential (primary) hypertension; W17.2XXA Fall into hole, initial encounter; Y93.89 Activity, other specified; Y92.89 Other specified places as the place of occurrence of the external cause; Z87.891 Personal history of nicotine dependence
CPT/HCPCS: 76000; A9270-GY; C1713; C1776; J0360; J0690; J1170; J1885; J2250; J2704; J2795; J3010; J8540